=== PATIENT | female | born 1995 | race Caucasian/White ===

== ENCOUNTER 2017-05-18 22:30 | Emergency (ER) | payer OTHER ==
[~2017-05-18] VITALS: Ht 149.9 cm; Wt 84.4 kg
[~2017-05-18 22:30] MED LIST: ACET-1256 PO; PEDICHW53 PO
[2017-05-18 22:32] VITALS: TEMP 36.8; Ht 149.9 cm; Wt 84.4 kg
[2017-05-18] MEDS ORDERED: KETOROLAC TROMETHAMINE 30 MG/ML VIAL IV STA (22:45)
--- NOTE | 2017-05-18 22:49 | EMERGENCY ROOM VISIT NOTE ---
History Report prepared by Trish: Iris Burns Under the Supervision of: Dr. Deshaun Butcher M.D. First contact with patient: 22:35 Chief Complaint: CARDIAC ASSESSMENT Stated Complaint: CHEST PAINS History of Present Illness The patient is a 21 year old female who presents to the Emergency Room with complaints of intermittent bilateral chest pain starting about two hours ago. She had a large sneeze at work when her ribs became tight on both sides and she started having difficulty breathing. Since then, she has been having a pinching pain in her chest every half hour or so which lasts for a minute or two. She has worsening pain in the middle of her chest with breathing and palpation. She denies any recent travels, abdominal pain, pain/swelling in lower extremities, or any other complaints. She denies any changes of . She does not have any medical problems. She has a family history of diabetes or high cholesterol. She does not have a family history of heart disease or blood clots. Source of History: patient, friend Onset: about 2 hours ago Position: chest (bilateral) Quality: other (pinching) Timing: intermittent Associated Symptoms: No abdominal pain Review of Systems See HPI for pertinent positives & negatives. A total of 10 systems reviewed and were otherwise negative. Past Medical & Surgical Medical Problems: (1) Acute Tonsillitis (2) Hx-Penicillin Allergy (3) Rectal & Anal Hemorrhage Old medical records were reviewed. Nurse's notes were reviewed and I agree with. Family History Cancer Diabetes mellitus Heart disease Social History Smoking Status: Never Smoker Drug Use: none Marital Status: in relationship Housing Status: lives with family Current/Historical Medications No Active Prescriptions or Reported Meds Allergies Coded Allergies: Amoxicillin (Unverified Allergy, Mild, HIVES, 05/02/10) Clavulanic Acid (Unverified Allergy, Mild, 01/05/10) Penicillins (Unverified Allergy, Mild, 01/05/10) Sweet Potato (Verified Allergy, Unknown, ., 05/18/17) Physical Exam Vital Signs Date Time Temp Pulse Resp B/P (MAP) Pulse Ox O2 Delivery O2 Flow Rate FiO2 05/19/17 01:11 85 18 114/85 98 05/19/17 00:25 84 18 117/67 98 Room Air 05/18/17 23:24 85 18 119/84 98 Room Air 05/18/17 22:52 98 Room Air 05/18/17 22:46 87 05/18/17 22:32 36.8 88 18 111/67 100 Room Air Physical Exam General: Non-ill appearing, young female, in no acute distress. HEENT: Normal cephalic atraumatic. Pupils are equal round and reactive to light. Extraocular movements are intact. Oropharynx is pink with moist mucous membranes. No swelling of the mouth lips or tongue. Neck: Supple with a midline trachea. No meningeal signs or stiffness, no JVD or bruits. No Stridor. Chest: Clear to auscultation bilaterally. No wheezes or rhonchi. No increased work of breathing. Tenderness to palpation along the sternum and laterally along the ribs. No crepitus. Heart: regular rate and rhythm. Abdomen: Soft nontender, nondistended without rebound guarding or rigidity. Extremities: No cyanosis clubbing or edema. No calf tenderness or assymetry Spine/Back. Non tender to palpation. No CVA tenderness Skin: Good turgor without rashes. Neurologic exam: Cranial nerves two through 12 are intact. Motor and sensation are intact and symmetrical throughout. Medical Decision & Procedures ER Provider Diagnostic Interpretation: X-ray results as stated below per interpretation by me: CHEST X-RAY No acute infiltrate, failure, or pneumothorax seen. CT results as stated below per my review and radiologist interpretation: CTA CHEST No evidence of pulmonary embolism. 3 mm pleural-based nodule right middle lobe (image 125, series 4). Mild likely atelectic change at left base. Lungs otherwise clear, allowing for motion artifact. No pleural effusions. No adenopathy. Heart size is normal. Aorta is unremarkable. Schmorls nodes/endplate irregularity of thoracic spine. Radiologist: Blaine Capps MD Laboratory Results 05/18/17 22:45 Red Blood Count 4.31, Mean Corpuscular Volume 86.1, Mean Corpuscular Hemoglobin 28.1, Mean Corpuscular Hemoglobin Concent 32.6, Mean Platelet Volume 10.0, Neutrophils (%) (Auto) 54.3, Lymphocytes (%) (Auto) 32.0, Monocytes (%) (Auto) 9.5, Eosinophils (%) (Auto) 3.5, Basophils (%) (Auto) 0.4, Neutrophils # (Auto) 5.26, Lymphocytes # (Auto) 3.10, Monocytes # (Auto) 0.92, Eosinophils # (Auto) 0.34, Basophils # (Auto) 0.04 05/18/17 22:45 Test 05/18/17 22:45 05/18/17 22:52 White Blood Count 9.69 K/uL (4.8-10.8) Red Blood Count 4.31 M/uL (4.2-5.4) Hemoglobin 12.1 g/dL (12.0-16.0) Hematocrit 37.1 % (37-47) Mean Corpuscular Volume 86.1 fL (80-100) Mean Corpuscular Hemoglobin 28.1 pg (25-34) Mean Corpuscular Hemoglobin Concent 32.6 g/dl (32-36) Platelet Count 367 K/uL (130-400) Mean Platelet Volume 10.0 fL (7.4-10.4) Neutrophils (%) (Auto) 54.3 % Lymphocytes (%) (Auto) 32.0 % Monocytes (%) (Auto) 9.5 % Eosinophils (%) (Auto) 3.5 % Basophils (%) (Auto) 0.4 % Neutrophils # (Auto) 5.26 K/uL (1.4-6.5) Lymphocytes # (Auto) 3.10 K/uL (1.2-3.4) Monocytes # (Auto) 0.92 K/uL (0.11-0.59) Eosinophils # (Auto) 0.34 K/uL (0-0.5) Basophils # (Auto) 0.04 K/uL (0-0.2) RDW Standard Deviation 44.2 fL (36.4-46.3) RDW Coefficient of Variation 14.0 % (11.5-14.5) Immature Granulocyte % (Auto) 0.3 % Immature Granulocyte # (Auto) 0.03 K/uL (0.00-0.02) Anion Gap 10.0 mmol/L (3-11) Est Creatinine Clear Calc Drug Dose 114.3 ml/min Estimated GFR () 135.2 Estimated GFR (Non- 116.6 BUN/Creatinine Ratio 17.8 (10-20) Calcium Level 8.7 mg/dl (8.5-10.1) Total Bilirubin 0.2 mg/dl (0.2-1) Direct Bilirubin mg/dl (0-0.2) Aspartate Amino Transf (AST/SGOT) 17 U/L (15-37) Alanine Aminotransferase (ALT/SGPT) 34 U/L (12-78) Alkaline Phosphatase 132 U/L (45-117) Total Protein 7.7 gm/dl (6.4-8.2) Albumin 3.8 gm/dl (3.4-5.0) Lipase 292 U/L (73-393) Human Chorionic Gonadotropin, Qual NEG (NEG) Chemistry Specimen Hemolysis Bedside D-Dimer > 450 ng/mlFEU (0-450) Bedside Troponin I < 0.030 ng/ml (0-0.045) Laboratory studies as stated above per my review. Medications Administered Medications (Trade) Dose Ordered Sig/Mary Ann Route Start Time Stop Time Status Last Admin Dose Admin Ketorolac Tromethamine (Toradol Inj) 30 mg NOW STAT IV 05/18/17 22:45 05/18/17 22:47 DC 05/18/17 22:58 30 MG ECG Indication: chest pain Rate (beats per minute): 77 Rhythm: normal sinus Findings: no acute ischemic change, no ectopy Comparison ECG Date: May 04, 2012 Change: no significant change ED Course 2235: Past medical records reviewed. The patient was evaluated in room B09, and a complete history and physical examination were performed. 2245: Toradol Inj 30 mg IV 2339: I reevaluated the patient who is resting comfortably. She is agreeable to a CT scan. 0111: Upon reevaluation, the patient is feeling better. I discussed the results and treatment plan with her. She verbalized agreement of the treatment plan. The patient was discharged home. Medical Decision Differential diagnosis includes but is not limited to musculoskeletal, pneumothorax, PE, cardiac disease, arrhythmia, electrolyte or metabolic abnormalities. Medication Reconciliation: I attest that I have personally reviewed the patient' s current medication list. Blood pressure Screening: Patient was found to have normal blood pressure on screening and does not require follow-up. This patient comes in as described above she has central chest pain also lateral chest pain. This started after sneezing however she's had continuing intermittent sharp pain. There is no trauma. He is in recent travel. No pain or swelling of legs. No history of cardiac disease blood clots or pulmonary disease. IV access established was given Toradol 30 mg IV. Chest x-ray does not show pneumothorax CHF or pneumonia. EKG does not show anything to acute coronary syndrome or arrhythmia. She is not . Her cardiac biomarkers are normal. She was feeling comfortable. Her d-dimer was elevated in light of this, I did order a chest CT to rule out PE or other pathology. I explained the risk and benefits the patient and she freely consented. No evidence of PE. There is no other acute abnormalities which would explain her symptoms. She is feeling better. She should use ibuprofen or other anti-inflammatory and return if: Increasing pain, worsening of symptoms, fever or chills, any new problems or concerns. Impression Primary Impression: Precordial chest pain Additional Impression: Costochondritis Scribe Attestation The scribe's documentation has been prepared under my direction and personally reviewed by me in its entirety. I confirm that the note above accurately reflects all work, treatment, procedures, and medical decision making performed by me. Departure Information Dispostion Home / Self-Care Prescriptions No Active Prescriptions or Reported Meds Referrals No Doctor, Assigned (PCP) Forms IMPORTANT VISIT INFORMATION Patient Instructions [facility] Additional Instructions Rest. Drink plenty of fluids. Use ibuprofen 400 mg every 6 hours, take with food Return if: Increasing pain, worsening of symptoms, fever or chills, shortness of breath, any new problems or concerns Follow-up with your doctor in 1-2 days for recheck Problem Qualifiers
[2017-05-18 23:00] LABS: BASO % 0.4 %; BASO ABS # 0.04 K/uL (0-0.2); COMPLETE YES; EOS % 3.5 %; HEMATOCRIT 37.1 % (37-47); IG% 0.3 %; MEAN CELL VOLUME 86.1 fL (80-100); MEAN CORPUSCULAR HEMOGLOBIN 28.1 pg (25-34); MEAN CORPUSCULAR HGB CONC 32.6 g/dl (32-36); MONO % 9.5 %; NEUT % 54.3 %; PLATELET COUNT 367 K/uL (130-400); RED BLOOD COUNT 4.31 M/uL (4.2-5.4); WHITE BLOOD COUNT 9.69 K/uL (4.8-10.8)
[2017-05-18 23:13] LABS: POINT OF CARE TROPONIN I < 0.030 ng/ml (0-0.045)
[2017-05-18 23:25] LABS: PREG INTERNAL NEGATIVE QC NEG CLEAR BACKGROUND; PREG INTERNAL POSITIVE QC POS CONTROL LINE
[2017-05-18 23:38] LABS: ALKALINE PHOSPHATASE 132 U/L (45-117); ALT/SGPT 34 U/L (12-78); AST/SGOT 17 U/L (15-37); BLOOD UREA NITROGEN 13 mg/dl (7-18); BUN/CREATININE RATIO 17.8 (10-20); CALCIUM 8.7 mg/dl (8.5-10.1); CARBON DIOXIDE 25 mmol/L (21-32); CHLORIDE 109 mmol/L (98-107); CREATININE 0.74 mg/dl (0.60-1.20); GLUCOSE 78 mg/dl (70-99); POTASSIUM 3.7 mmol/L (3.5-5.1); SODIUM 144 mmol/L (136-145)
[2017-05-18] MEDS ORDERED: OPTIRAY 320 IV PRN (23:45)
[2017-05-19 01:11] VITALS: BP 114/85; PULSE 85; O2SAT 98
--- NOTE | 2017-05-19 06:35 | DIAGNOSTIC IMAGING REPORT ---
CHEST ONE VIEW PORTABLE CLINICAL HISTORY: CHEST PAIN dyspnea COMPARISON STUDY: No previous studies for comparison. FINDINGS: The bones soft tissues and hemidiaphragms are normal. The cardiomediastinal silhouette is normal. The lungs are clear. The pulmonary vasculature is normal. IMPRESSION: Negative chest. Electronically signed by: Tavon Elizondo M.D. 05/19/2017 6:34 AM Dictated Date/Time: 05/19/2017 6:34 AM
--- NOTE | 2017-05-19 06:35 | DIAGNOSTIC IMAGING REPORT ---
CHEST CTA for PULMONARY ARTERIES CT DOSE: 323.35 mGy.cm HISTORY: Chest pain dyspnea TECHNIQUE: Multiaxial CT images of the chest were performed following the intravenous administration of contrast to evaluate the pulmonary arteries. Maximal intensity projection images were also obtained. COMPARISON STUDY: None. FINDINGS: There is a normal caliber thoracic aorta with no evidence for dissection. There is no evidence for pulmonary embolus. No pleural effusions. No pneumothorax. The liver and spleen are unremarkable. No mediastinal or hilar lymphadenopathy. The central airways are patent. The lungs are clear. IMPRESSION: No evidence for pulmonary embolus. Electronically signed by: Tavon Elizondo M.D. 05/19/2017 6:33 AM Dictated Date/Time: 05/19/2017 6:33 AM
== END 2017-05-19 01:13 | disposition home or self-care (01) ==
LOC: C.EDB 22:31
DX: R07.2 Precordial pain (principal); M94.0 Chondrocostal junction syndrome [Tietze]; R91.1 Solitary pulmonary nodule; Z83.3 Family history of diabetes mellitus; Z82.49 Family history of ischemic heart disease and other diseases of the circulatory system

== ENCOUNTER 2019-08-12 23:09 | Inpatient (IN) ==
[2019-08-13] MEDS ORDERED: OXYTOCIN 30 UNITS/500 ML BAG IV PRN ×3 (00:16→15:35)
--- NOTE | 2019-08-13 00:42 | History & Physical Report ---
Date of Service August 13, 2019 Assessment & Plan (1) Uterine contractions at greater than 20 weeks of gestation: Patient is a 24 yo at 39.1 wks with ctxs for few days, discomfort, multipe visits to here and office, prolonged latent pahse Cervical change noted today VSS Afebrile FHR reassuring GBS negative Plan to admit, monitor, ambulate, if no cervical change consider augmentation with low dose pitocin All questions were answered History of Present Illness Chief Complaint: Patient is a 24 yo at 39.1 wks who has been feeling cytxs for the last 5days She was here in L&D for labor last night and ROM check and she was sent home She then went to office for labor check at noon yesterday and her cx was 3/ 50%/-3 She was sent home She had more cts at home, got closer and more painful after 2029 She presented to here No LOF/B +FM She rates her pain 8/10 and plans to get epidural She came with her whole family. They live 1 hour away from hospital. GBS negative Primary Care Provider: NO PCP Allergies Allergy/AdvReac Type Severity Reaction Status Date / Time amoxicillin Allergy Mild HIVES Verified 08/01/19 09:05 clavulanic acid Allergy Mild Hives Verified 08/01/19 09:09 Penicillins Allergy Mild Unknown Unverified 10/12/18 00:53 sweet potato Allergy Unknown . Verified 10/12/18 00:53 Home Medications Home Medications Medication Instructions Recorded Confirmed Type vit-iron fum-folic ac 1 tab PO DAILY 08/01/19 08/11/19 History [ Vitamin] sertraline [Zoloft] 50 mg PO DAILY 08/01/19 08/11/19 History Patient History Social History Preferred Language: Guatemalan Communication Ability: Effective Oncology Coordinator Required: No Beliefs That Will Affect Care: None marital status: Single Current Living Situation: Significant Other and Other Current Living Situation Comment: 2 sons and boyfriend/FOB Other Information That Helps Us Care for You: No Feels Safe at Home: Yes Safety Concerns: Feels Safe At This Time Smoking Status: Never smoker Do You Dip or Chew Tobacco: No ; Second Hand Exposure: No ; Tobacco Cessation Education Requested by Patient: No Hx Alcohol Use: No Hx Substance Use: No OB History 2 FT [employer] History No h/o STD's Review of Systems All systems reviewed & are unremarkable except as noted in HPI & below Physical Exam Constitutional: WD/WN, vitals as above well developed, well nourished and + acute distress (with ctxs) Genitourinary: Cervix 4/ 80%/ -2, bulging tight bag, vertex Results & Data Vital Signs (Past 12 Hours) Vital Signs Temp Pulse Resp BP 08/12/19 23:21 86 118/73 08/12/19 23:17 36.5 C 86 20 118/73 Monitoring External Monitor Categ I Tocodynamometer Ctxs q 3-5 min
[2019-08-13 00:43] LABS: Hematocrit (blood only) 35.4 % (37-47); Hemoglobin 11.5 g/dL (12.0-16.0); Mean Corpuscular Volume 93.2 fL (80-100); Mean Platelet Volume 10.5 fL (7.4-10.4); Platelet Count 245 K/uL (130-400); RDW Coefficient of Variation 15.2 % (11.5-14.5); RDW Standard Deviation 51.5 fL (36.4-46.3); White Blood Count 8.91 K/uL (4.8-10.8)
[2019-08-13 00:52] LABS: Mean Corpuscular Hgb Conc 32.5 g/dL (32-36)
[2019-08-13] MEDS: LACTATED RINGER'S 1,000 ML IV PRN ×4 (03:12→13:02)
--- NOTE | 2019-08-13 08:39 | Labor Progress Brief Note ---
Date of Service August 13, 2019 Met pt and family Reviewed PNC Pt on Pitocin Bedside sono : VT Pt doing well Results & Data Vital Signs (Past 12 Hours) Vital Signs Temp Pulse Resp BP 08/13/19 07:40 20 08/13/19 07:25 80 107/53 L 08/13/19 07:08 36.5 C 08/13/19 06:42 99 H 116/62 08/13/19 04:57 85 115/68 08/13/19 03:10 97 H 109/55 L 08/13/19 03:05 36.8 C 08/13/19 01:50 116 H 112/64 08/12/19 23:25 36.5 C 20 08/12/19 23:21 86 118/73 08/12/19 23:17 36.5 C 86 20 118/73
--- NOTE | 2019-08-13 12:29 | Labor Progress Brief Note ---
Date of Service August 13, 2019 Pt doing well FHR; CAT1 Ctx 2-3mins pit; 20 MU VE 3/50/-2; AROM clear Results & Data Vital Signs (Past 12 Hours) Vital Signs Temp Pulse Resp BP 08/13/19 11:31 36.4 C L 81 18 120/71 08/13/19 10:36 76 125/69 08/13/19 08:34 18 08/13/19 07:40 20 08/13/19 07:25 80 107/53 L 08/13/19 07:08 36.5 C 08/13/19 06:42 99 H 116/62 08/13/19 04:57 85 115/68 08/13/19 03:10 97 H 109/55 L 08/13/19 03:05 36.8 C 08/13/19 01:50 116 H 112/64
[2019-08-13] MEDS ORDERED: BUPIVACAINE 0.25% 30 ML VIAL ONE (12:33)
[2019-08-13] MEDS ORDERED: fentaNYL citrate 100 MCG/2 ML VIAL ONE (12:33)
[2019-08-13] MEDS ORDERED: ePHEDrine sulfate 50 MG/ML AMP ONE (12:33)
[2019-08-13] MEDS ORDERED: fentaNYL 2MCG/ML ROPIV 1.25MG/ML 100 ML BAG EPI ONE (12:34)
[2019-08-13] MEDS ORDERED: NALOXONE HCL 0.4 MG/1 ML VIAL/CARP IV PRN (12:55)
[2019-08-13] MEDS ORDERED: DiphenhydrAMINE HCL 50 MG/ML VIAL IV PRN (12:55)
[2019-08-13] MEDS ORDERED: ONDANSETRON INJ 2 MG/ML 2 ML VIAL IV PRN (12:55)
[2019-08-13] MEDS ORDERED: NALBUPHINE HCL INJ 10 MG/ML AMP IV PRN (12:55)
[2019-08-13] MEDS ORDERED: ePHEDrine sulfate 50 MG/ML AMP IV PRN (12:55)
[2019-08-13] MEDS ORDERED: fentaNYL 2MCG/ML ROPIV 1.25MG/ML 100 ML BAG EPI PRN (12:55)
[2019-08-13] MEDS ORDERED: NALOXONE HCL 1 MG in SODIUM CHLORIDE 0.9% 1000ML 1,000 ML IV PRN (12:55)
[2019-08-13] MEDS ORDERED: PROMETHAZINE HCL 6.25 MG in SODIUM CHLORIDE 0.9% 50 ML IV PRN (12:55)
--- NOTE | 2019-08-13 13:23 | Anesthesiology Consultation ---
Date of Service August 13, 2019 Assessment & Plan (1) Encounter for pre-operative examination: Chart Review Chart Review: Patient NOT seen in Pre Admission Testing and Acceptable Risk for Labor Epidural Consults Requested none ASA ASA2 Proposed Anesthesia Anesthesia Type: Labor Epidural Risk / Benefits Reviewed With: PT / POA / Parent / Guardian, Accepts Plan and Informed Consent Obtained History Height/Weight Height: 4 ft 10 in Weight: 95.254 kg Allergies Allergy/AdvReac Type Severity Reaction Status Date / Time amoxicillin Allergy Mild HIVES Verified 08/01/19 09:05 clavulanic acid Allergy Mild Hives Verified 08/01/19 09:09 Penicillins Allergy Mild Unknown Unverified 10/12/18 00:53 sweet potato Allergy Unknown . Verified 10/12/18 00:53 Medications Home Medications Medication Instructions Recorded Confirmed Last Taken vit-iron fum-folic ac 1 tab PO DAILY 08/13/19 08/13/19 08/12/19 08:00 [ Vitamin] sertraline [Zoloft] 50 mg PO DAILY 08/13/19 08/13/19 08/12/19 08:00 Active Medications Generic Name Dose Route Start Last Admin Trade Name Freq PRN Reason Stop Dose Admin Lactated Ringer's 1,000 mls @ 150 mls/hr 08/13/19 00:16 08/13/19 13:02 Lr IV 08/15/19 00:15 999 mls/hr .[id number] PRN Administration L&D Protocol Protocol Oxytocin 30 units in 500 mls @ 20 mls/hr 08/13/19 00:51 08/13/19 10:47 Pitocin IV 08/15/19 00:50 1.2 units/hr .Q24H PRN 20 mls/hr Labor Induction/Augmentation Titration Protocol 1.2 UNITS/HR Ropivacaine 100 ml 08/13/19 12:55 08/13/19 13:16 Epidural (L&D) EPI 08/14/19 12:54 10 ml PRN PRN Administration Pain R/T Labor Protocol NPO Date Last Intake of Fluids: 08/13/19 Time Last Intake of Fluids: 11:00 Date Last Intake of Solids: 08/12/19 Time Last Intake of Solids: 19:00 Exercise / Class Metabolic Activity II 4-5 Yardwork/Stairs/Walk up hill Past Family History Family History Father Hypertension Past Anesthesia History No Hx of Anesthesia Complications and No Family Hx of Anesthesia Complications History of PONV No Hx of PONV and No Hx of Motion Sickness Social History Smoking Status: Never smoker Do You Dip or Chew Tobacco: No Hx Alcohol Use: No Hx Substance Use: No substance use type: does not use Physical Exam Vital Signs Last Vital Signs Temp 36.4 C L 08/13/19 11:31 Pulse 78 08/13/19 13:20 Resp 18 08/13/19 11:31 BP 118/72 08/13/19 13:20 Pulse Ox 100 08/13/19 13:16 ENMT Mouth: no dentition abnormality Thyromental Distance: > or= 3.5 Finger Breadths Mallampati Class: II Neck normal visual inspection Respiratory normal respiratory effort Auscultation: lungs clear to auscultation bilaterally Cardiovascular Rate/Rhythm: regular rate and regular rhythm Psychiatric Orientation: alert Testing Laboratory Results 08/13/19 00:25
[2019-08-13] MEDS ORDERED: METHYLERGONOVINE MALEATE 0.2 MG/ML AMP ONE (15:25)
[2019-08-13] MEDS ORDERED: ACETAMINOPHEN 325 MG TAB PO PRN (15:35)
[2019-08-13] MEDS ORDERED: BISACODYL 10 MG SUPP PR PRN (15:35)
[2019-08-13] MEDS ORDERED: SUPERCREAM 0.870% 15 GM JAR EXT PRN (15:35)
[2019-08-13] MEDS ORDERED: DIPHTHERIA/TETANUS/PERTUSSIS 0.5 ML SYR/VIAL IM ONE (15:35)
[2019-08-13] MEDS ORDERED: BENZOCAINE 20% AER SPR 82.5 GM CAN EXT PRN (15:35)
[2019-08-13] MEDS ORDERED: METHYLERGONOVINE MALEATE 0.2 MG/ML AMP IM ONE (15:35)
[2019-08-13] MEDS ORDERED: HYDROCORTISONE ACETATE 25 MG SUPP PR PRN (15:35)
[2019-08-13] MEDS ORDERED: miSOPROStol 200 MCG TAB PR ONE (15:35)
--- NOTE | 2019-08-13 16:12 | Anesthesia Procedure Note ---
Date of Service August 13, 2019 Anesthesia Post Epidural Note Vital Signs Vital Signs: Temp Pulse Resp BP Pulse Ox 36.4 C L 84 18 113/58 L 100 08/13/19 11:31 08/13/19 15:57 08/13/19 13:19 08/13/19 15:57 08/13/19 15:16 Pain Intensity Abdomen: Pain Intensity: 7 Notes Mental Status: alert / awake / arousable Nausea / Vomiting: adequately controlled Pain: adequately controlled Airway Patency, RR, SpO2: stable & adequate BP & HR: stable & adequate Hydration State: stable & adequate Neuraxial Anesthesia: was administered and sensory block is resolving Anesthetic Complications: no major complications apparent and Pt Satisfied with anesthetic care Epidural: Removed without complications and With tip intact
--- NOTE | 2019-08-13 16:48 | Delivery Summary ---
DATE OF OPERATION: 08/13/2019 The patient delivered a live infant male in occiput anterior presentation. There were 3 nuchal cords which were easily reduced. Baby also had cord wrapped around his left wrist. Infant was placed on mother's abdomen. Cord was clamped and cut after 1 minute. Cord blood was obtained. Placenta was spontaneously delivered. Inspection of the perineum showed no laceration or tears in the vagina. Estimated blood loss 500 mL. There is good hemostasis. Baby and mother are doing well in recovery. Details of 's information is in the pediatric chart. All instruments were removed from the vagina including retractors, sponges and the baby and mother as stated above are doing well in recovery. I attest to the content of the Intraoperative Record and any orders documented therein. Any exception s are noted below.
[2019-08-13] MEDS: IBUPROFEN 600 MG TAB PO PRN ×2 (17:07→21:02)
[2019-08-13] MEDS: DOCUSATE SODIUM 100 MG CAP PO SCH (21:03)
[2019-08-14] MEDS: IBUPROFEN 600 MG TAB PO PRN ×3 (00:51→11:01)
[2019-08-14 06:30] LABS: Hematocrit (blood only) 31.8 % (37-47); Hemoglobin 10.3 g/dL (12.0-16.0); Mean Corpuscular Hgb Conc 32.4 g/dL (32-36); Mean Corpuscular Volume 93.3 fL (80-100); Mean Platelet Volume 10.9 fL (7.4-10.4); Platelet Count 197 K/uL (130-400); RDW Coefficient of Variation 15.1 % (11.5-14.5); RDW Standard Deviation 51.1 fL (36.4-46.3); Red Blood Count 3.41 M/uL (4.2-5.4); White Blood Count 9.91 K/uL (4.8-10.8)
[2019-08-14] MEDS ORDERED: PRENATAL VITAMIN 1 TAB PO SCH (08:00)
[2019-08-14] MEDS ORDERED: FERROUS SULFATE 325 MG TAB PO SCH (08:00)
[2019-08-14] MEDS: DOCUSATE SODIUM 100 MG CAP PO SCH (08:33)
--- NOTE | 2019-08-14 11:46 | Obstetrical Progress Note ---
Date of Service August 14, 2019 Subjective doing well planning for discharge today Physical Exam Constitutional: WD/WN, vitals as above comfortable abdomen soft Fundus firm no edema neg Angelita's for discharge Results & Data Vital Signs (Past 12 Hours) Vital Signs Temp Pulse Resp BP Pulse Ox 08/14/19 07:45 36.5 C 75 16 101/67 08/14/19 04:30 36.4 C L 65 15 110/73 98 Laboratory Results Laboratory Results - last 72 hr 08/13/19 08/14/19 00:25 05:58 WBC 8.91 9.91 RBC 3.80 L 3.41 L Hgb 11.5 L 10.3 L Hct 35.4 L 31.8 L MCV 93.2 93.3 MCH 30.3 30.2 MCHC 32.5 32.4 RDW Std Deviation 51.5 H 51.1 H RDW Coeff of Eva 15.2 H 15.1 H Plt Count 245 197 MPV 10.5 H 10.9 H
[2019-08-14] MEDS ORDERED: BISACODYL 5 MG TABEC PO SCH (20:00)
== END 2019-08-14 16:17 | disposition home or self-care (01) | DRG 807 ==
LOC: OPB 23:09 → 4S1 23:10 → 4S2 08-13 18:15
DX: O69.82X0 Labor and delivery complicated by other cord entanglement, without compression, not applicable or unspecified; O69.81X0 Labor and delivery complicated by cord around neck, without compression, not applicable or unspecified; Z3A.39 39 weeks gestation of pregnancy; Z37.0 Single live birth